=== PATIENT | male | born 1950 | race Caucasian/White ===

== ENCOUNTER 2023-08-21 21:41 | Emergency (ER) | payer OTHER, SELFPAY ==
[2023-08-21 21:43] VITALS: BP 207/100
[2023-08-21 22:04] LABS: % Basophils 0.7 % (0-2); % Eosinophils 3.4 % (0-6); % Immature Granulocytes 0.3 % (0-0.5); % Lymphocytes 28.3 % (20.5-51.1); % Monocytes 7.4 % (1.7-9.3); % Neutrophils 59.9 % (42.2-75.2); Absolute Basophils 0.1 10^3/uL (0-0.2); Absolute Eosinophils 0.2 10^3/uL (0-0.7); Absolute Monocytes 0.5 10^3/uL (0.1-0.6); Absolute Neutrophils 4.2 10^3/uL (1.4-6.5); Mean Corp Hgb Conc. 33.3 g/dL (33.0-37.0); Mean Corpuscular Hgb 29.6 pg (27.0-31.0); Mean Corpuscular Volume 88.8 fL (80.0-94.0); Mean Platelet Volume 9.4 fL (7.4-10.4); Nucleated Red Blood Cells % 0 % (-); Platelet Count 272 10^3/uL (130-400); Red Blood Cell Count 5.07 10^6/uL (4.70-6.10); Red Cell Dist. Width 12.8 % (11.5-14.5)
[2023-08-21 22:16] LABS: COVID-19 Antigen Positive (Negative)
[2023-08-21 22:29] LABS: Troponin I < 0.012 ng/ml
[2023-08-21 22:45] LABS: ALT (SGPT) 25 U/L (0-50); AST (SGOT) 26 U/L (17-59); Albumin 4.2 g/dl (3.5-5.0); Alkaline Phosphatase 85 U/L (38-126); Blood Urea Nitrogen 27 mg/dl (9-20); Calcium 9.4 mg/dl (8.4-10.2); Carbon Dioxide 27 mmol/L (22-30); Chloride 103 mmol/L (98-107); Glucose 115 mg/dl (70-99); Potassium 5.1 mmol/L (3.5-5.1); Sodium 140 mmol/L (135-145); Total Bilirubin 0.5 mg/dl (0.2-1.3); Total Protein 6.6 g/dl (6.3-8.2); eGFR > 60.00
[2023-08-22 01:17] VITALS: BP 157/108
--- NOTE | 2023-08-22 01:46 | EDRN ---
fells like he can not move and his legs bilaterally are on thick carpet. Pt has slight SOB at times but has a COPD history. When asked if he felt like he could not get breath. He said no change from his normal. No fevers noted. Pt has a cough.
[2023-08-22 01:53] VITALS: BMI 29.7
[2023-08-22 02:00] VITALS: BP 147/95
--- NOTE | 2023-08-22 02:33 | ED.GENMED ---
History of Present Illness
General
Chief Complaint: Fatigue
Source: patient
Exam Limitations: none
Time Seen by Provider: 08/22/23 02:06
Nursing documentation reviewed up to this point in time: agreed with
Travel History
Have you had any contact with someone who has COVID-19?: No
Do you have any symptoms of coronavirus? Fever > 100 degrees, chills, cough, shortness of breath, sore throat, loss of taste or smell, muscle aches, or headache?: No
History of Present Illness
History of Present Illness:
This is a 73-year-old gentleman who has history of COPD, mild chronic cough, hyperlipidemia, remote history of alcohol abuse has been sober for almost 10 years.
He complains of several day history of fatigue as well as 4 to 7-day history of somewhat increased cough compared to his chronic daily cough. He denies shortness of breath, denies fever nor chills. He is most concerned with mild fatigue, mild
generalized weakness but denies dizziness, denies lightheadedness, no fall. Appetite has been good.
He has been out and about, active over the past week or 2, attending various meetings and with increased cough he was recommended to test himself for COVID which she did so 3 times over the past week and all have been negative.
He denies change in weight, denies leg pain or swelling.
He does note somewhat chronic issue of intermittent fatigue which is most noted while ambulating at the grocery store, he generally has a somewhat abrupt onset of fatigue where he needs to stop and stand for a few minutes, fatigue then resolves.
The symptoms have been ongoing for a number of years, initially once a month, now generally once a week. He has had no fall, no loss of consciousness, no palpitations or chest pain.
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
Past History
Past History
ED Past Medical History: Cancer (bladder), COPD and Psychiatric (depression, ETOH)
ED Past Surgical History: Orthopedic and Urological
Social History
Tobacco: Former smoker
Alcohol: Former
Personal: Single
Living: alone
Employment: Retired
Family History
Family History: Other (Noncontributory)
Phy Exam
Physical Exam
Physical Exam:
GENERAL: 73-year-old gentleman appears his stated age, awake and alert, pleasant, quite chatty, appears in no acute distress.
EYE: anicteric
NECK: Supple, nontender, no meningismus, no significant adenopathy.
ENT: Facemask in place.
CARDIAC: Regular rate and rhythm. no murmur.
LUNGS: no acute respiratory distress, scant bibasilar wheezing otherwise clear to auscultation.
ABDOMEN: Soft, nondistended, without focal tenderness, no r/g, normoactive BS.
NEUROLOGICAL: Alert and oriented x3, no focal neuro deficits. Gait is steady.
SKIN: Warm and dry, normal color, skin intact. No rash.
MUSCULOSKELETAL: No C/C/E. peripheral pulses are full and equal b/l. No palpable tenderness.
PSYCH: Normal and appropriate interaction.
Course
Orders/Labs/Results
Orders:
Orders
08/21/23 21:47
Electrocardiogram (*1) Urgent
Reason for Study: Vertigo / Dizzy
CT Head W/o Iv Contrast Urgent
Comment:
Reason For Exam: dizziness
CR Chest - 2 Views Urgent
Comment:
Reason For Exam: cough
08/21/23 21:48
EKG- Treatment ONCE
08/21/23 21:57
COVID-19 Antigen Urgent
Source: Nasal Swab
Complete Blood Count/With Diff Urgent
Comprehensive Metabolic Panel Urgent
Troponin I Urgent
Abnormal Lab Results
08/21/23
21:57
BUN 27 H mg/dl
(9-20)
Glucose 115 H mg/dl
(70-99)
SARS-CoV-2 Antigen Positive A
(Negative)
08/21/23 21:57
08/21/23 21:57
Vital Signs
Initial and Last Documented VS:
Initial Vital Signs
Temp Pulse Resp BP Pulse Ox
98.2 F 63 20 207/100 97
08/21/23 21:43 08/21/23 21:43 08/21/23 21:43 08/21/23 21:43 08/21/23 21:43
Last Documented Vital Signs
Temp Pulse Resp BP Pulse Ox
98.2 F 65 19 147/95 95
08/21/23 21:43 08/22/23 02:15 08/22/23 02:15 08/22/23 02:00 08/22/23 02:15
MDM/Problems Addressed
Differential Diagnosis Includes:
Patient presents with somewhat acute on chronic fatigue, mild generalized weakness but no lateralizing signs.
History of COPD with somewhat chronic cough and admits to increased nonproductive cough over the past week.
Concern for exacerbation of COPD, URI, pneumonia, CHF, dehydration, electrolyte abnormality, anemia. Less likely CVA.
Labs overall unremarkable. Troponin is negative.
COVID antigen is positive and symptoms of generalized fatigue, increased cough could certainly be COVID-19 URI in nature.
It is reassuring that he has had no shortness of breath and pulse ox remains normal.
CT of the head is unremarkable as is chest x-ray.
EKG shows normal sinus rhythm at 62, normal axis, normal intervals, no acute ST-T wave abnormalities.
At this point with onset of symptoms at least 4 days ago perhaps longer would not recommend initiation of Paxlovid.
Overall well in appearance.
Moderately elevated blood pressure initially 207/100, has improved to 140/80.
He remains afebrile.
Recommend supportive measures, staying well-hydrated, continue maintenance inhaler as well as as needed albuterol inhaler for cough and shortness of breath.
Tylenol as needed for fever.
Home quarantine at least over the next 2 to 3 days with follow-up with PCP.
Return precautions discussed.
*Radiology
Radiology exam reviewed: radiology read reviewed
*Pulse Oximetry
Patient hypoxic: no
*EKG
Interpreted by ED Provider?: Yes
Comparison EKG: no changes (Unchanged from 2014)
Rate: normal
Rhythm: sinus and PAC's (1 PAC)
[place]: normal axis
Interval: normal interval
QRS Pattern: normal QRS
Ischemia: no ischemia
*Extension Educator Interpretation
Rate: normal
Interpretation: normal
Rhythm: sinus
*Critical Care Note
Total Time (30-74mins, 75-104mins- exclusive of procedures): Not Applicable
ED Attending Note
-
Portions of this chart may have been created with voice recognition software.� Occasional wrong word or��sound alike� substitutions may have occurred due to the inherent limitations of voice recognition software.
Discharge Plan
Departure
Patient Disposition: Home (Routine Discharge)
Date of Disposition: 08/22/23
Time of Disposition: 02:33
Patient with high blood pressure during this ER visit?: No
Condition: Good
Covid-19: Confirmed COVID-19
Discharge Problem:
COVID-19
Instructions: COVID-19 (DC)
Prescriptions:
No Action
multivitamin [Daily Vitamin] 1 EACH tablet
1 ea PO DAILY
atorvastatin 20 MG tablet
20 mg PO QPM
docusate sodium 100 MG capsule
100 mg PO HS
azelastine 137 MCG/0.137 ML aerosol,spray
137 mcg NS DAILY
albuterol sulfate [Proventil HFA] 90 MCG/PUFF HFA aerosol inhaler
1 puff inhalation PRN PRN (Reason: difficulty breathing)
omega [id number]-vkd-fish oil 1,000 MG capsule
1,000 mg PO DAILY
loratadine 10 MG capsule
10 mg PO DAILY
phenazopyridine 200 MG tablet
200 mg PO TID
triprolidine-pseudoephedrine [Aprodine] 1 EACH tablet
1 ea PO DAILY
trazodone 100 MG tablet
200 mg PO HS
rftxjwrazvt-kiflvkguw-takyzpol [Trelegy Ellipta] 1 EACH blister with device
1 ea IH DAILY
Referrals:
Herb Ford MD [Family Provider] - Call in 1-3 days for appt
Interventions
Interventions:
*Risk Screen - Suicide Last Done: 08/21/23 21:43
*General Assessment Last Done: 08/21/23 21:43
*Neglect/Abuse Screening Last Done: 08/21/23 21:43
ED- Fall Risk Assessment Last Done: 08/22/23 01:43
*ED COVID-19 Vaccine History Last Done: 08/22/23 01:43
*Nursing Disposition Last Done: 08/22/23 02:55
Discharge Date and Time
Discharge Date/Time: 08/22/23 02:55
== END 2023-08-22 02:55 | disposition home or self-care (01) ==
LOC: EMR 21:41
PROVIDERS: Emergency Medicine; EMERGENCY PHYSICIAN Emergency Medicine; FAMILY PHYSICIAN Family Medicine
DX: U07.1 COVID-19 (principal); J44.9 Chronic obstructive pulmonary disease, unspecified; R03.0 Elevated blood-pressure reading, without diagnosis of hypertension; Z87.891 Personal history of nicotine dependence
CPT/HCPCS: 99285; 70450; 71046; 80053; 84484; 85025; 87811; 93005